=== PATIENT | female | born 1995 | race Caucasian/White ===

== ENCOUNTER 2018-01-18 02:00 | Emergency (ER) | payer OTHER ==
--- NOTE | 2018-01-18 02:27 | ED ---
HPI Chest Pain - HPI Summary HPI Summary: This patient is a 22 year old F presenting to [facility] with a chief complaint of intermittent chest tightness lasting 10 minutes that began on 01/09/2018. The patient rates the pain 2/10 in severity. Symptoms aggravated by nothing. Symptoms alleviated by nothing. Patient reports nausea (resolved), dizziness ( resolved), hot flash (resolved), and palpitations. Patient states she is currently being worked up for Lupus, and she has had positive antibodies for it. - History of Current Complaint Chief Complaint: EDChestWallPain Time Seen by Provider: 01/18/18 02:18 Hx Obtained From: Patient Hx Last Menstrual Period: 01/07/15 Onset/Duration: Started Weeks Ago, Still Present Timing: Intermittent, Lasting Seconds Initial Severity: Mild Current Severity: Mild Pain Intensity: 2 Pain Scale Used: 0-10 Numeric Chest Pain Location: Diffuse Chest Pain Radiates: No Character: Tightness Aggravating Factor(s): Nothing Alleviating Factor(s): Nothing Associated Signs and Symptoms: Positive: Dizziness, Chills, Nausea - Allergy/Home Medications Allergies/Adverse Reactions: Allergies Allergy/AdvReac Type Severity Reaction Status Date / Time No Known Allergies Allergy Verified 01/18/18 02:12 PMH/Surg Hx/FS Hx/Imm Hx Previously Healthy: No Respiratory History: Reports: Hx Asthma - exercise induced Opthamlomology History: Denies: Hx Legally Blind EENT History: Denies: Hx Deafness Infectious Disease History: No Infectious Disease History: Denies: Traveled Outside the [place] in Last 30 Days - Family History Known Family History: Positive: Other - Lupus - Social History Occupation: Student Lives: With Family Alcohol Use: Rare Hx Substance Use: No Substance Use Type: Reports: None Hx Tobacco Use: No Smoking Status (MU): Never Smoked Tobacco Review of Systems Positive: Chills Positive: Palpitations, Chest Pain Negative: Shortness Of Breath Positive: Nausea Neurological: Other - Positive dizziness All Other Systems Reviewed And Are Negative: Yes Physical Exam - Summary Physical Exam Summary: Appearance: Well-appearing, Well-nourished, lying in bed comfortably Skin: Warm, dry, no obvious rash Eyes: sclera anicteric, no conjunctival pallor ENT: mucous membranes moist, pharynx appears normal Neck: Supple, nontender Respiratory: Clear to auscultation, no signs of respiratory distress Cardiovascular: Normal S1, S2. No murmurs. Normal distal pulses in tibial and radial bilaterally. Abdomen: Soft, nontender, normal active bowel sounds present Musculoskeletal: Normal, Strength/ROM Intact Neurological: A&Ox3, awake and alert, mentation is normal, speech is fluent and appropriate Psychiatric: affect is normal, does not appear anxious or depressed Triage Information Reviewed: Yes Vital Signs On Initial Exam: Initial Vitals Temp Pulse Resp BP Pulse Ox 97.9 F 84 18 129/98 100 01/18/18 02:09 01/18/18 02:09 01/18/18 02:09 01/18/18 02:09 01/18/18 02:09 Vital Signs Reviewed: Yes Diagnostics - Vital Signs Vital Signs Temp Pulse Resp BP Pulse Ox 01/18/18 02:09 97.9 F 84 18 129/98 100 - Laboratory Result Diagrams: 01/18/18 02:35 01/18/18 02:35 Lab Statement: Any lab studies that have been ordered have been reviewed, and results considered in the medical decision making process. - Radiology CXR Radiology Interpretation Completed By: ED Physician - CXR reveals, per ED physician, no acute disease. - EKG 0240 Cardiac Rate: NL ST Segment: Normal Ectopy: None EKG Interpretation: Ectopic atrial rhythm at 71 BPM Chest Pain Course/Dx - Course Course Of Treatment: This is a 22-year-old woman with a history of possible SLE , and abnormal electrocardiogram, and some swelling behind her calf. I spoke to the covering photographic developer and printer regarding her abnormal EKG and he was able to review the tracing remotely. It is an ectopic atrial rhythm which apparently is a normal variant and some young people and is considered quite benign. Her ultrasound will be done shortly; I suspect that he'll be negative at which point she can be safely discharged home to outpatient follow-up. - Diagnoses Provider Diagnoses: Leg swelling, Ectopic atrial rhythm - Provider Notifications Discussed Care Of Patient With: Jone Bass Time Discussed With Above Provider: 06:35 Instructed by Provider To: Other - Consult with (cardiology) at 0635. He communicated that ectopic atrial rhythm is a normal variant, and a benign finding. 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 The abnormality on your EKG is an ectopic atrial rhythm, which is a normal variant in some young people and is considered quite benign. Your US was negative for a DVT, so that is not a worry either. - Billing Disposition and Condition Condition: GOOD Disposition: Home - Attestation Statements Document Initiated by Scribe: Yes Documenting Scribe: Yuliet Jurado Provider For Whom Yari is Documenting (Include Credential): Desmond Thurman MD Scribe Attestation: I, Yuliet Jurado, scribed for Desmond Thurman MD on 01/18/18 at 1956. Scribe Documentation Reviewed: Yes Provider Attestation: The documentation as recorded by the Yuliet wallace accurately reflects the service I personally performed and the decisions made by me, Desmond Thurman MD
[2018-01-18 02:50] LABS: ABS Basophils 0.1 10^3/ul (0-0.2); ABS Eosinophils 0.3 10^3/ul (0-0.6); ABS Lymphocytes 3.3 10^3/ul (1.0-4.8); ABS Monocytes 0.9 10^3/ul (0-0.8); ABS Nucleated RBC 0 10^3/ul; Eosinophil % 3.1 % (0-6); Hematocrit 44 % (35-47); Hemoglobin 14.9 g/dl (12.0-16.0); Lymphocyte % 39.4 % (25-47); Mean Corpuscular HGB Conc 34 g/dl (31-36); Mean Corpuscular Hemoglobin 31 pg (27-31); Mean Corpuscular Volume 92 fL (80-97); Nucleated Red Blood Cells % 0.1; Platelet Count 188 10^3/ul (150-450); Red Cell Distribution Width 13 % (10.5-15); White Blood Count 8.4 10^3/ul (3.5-10.8)
[2018-01-18 03:14] LABS: EGFR Non-African American 102.9 (>60)
--- NOTE | 2018-01-18 08:19 | RAD ---
INDICATION: Chest pain COMPARISON: None TECHNIQUE: PA and lateral views of the chest were obtained. FINDINGS: The heart and mediastinum are normal in size and contour. The lungs are grossly clear. There is no evidence of large pleural effusion. Visualized bones are normal for the patient's age. There is no radiographic evidence of free air beneath the diaphragm IMPRESSION: No radiographic evidence of acute cardiopulmonary disease. R0
--- NOTE | 2018-01-18 08:41 | RAD ---
HISTORY: swelling, r/o dvt COMPARISONS: None relevant TECHNIQUE: Multiple transverse and longitudinal ultrasound images were obtained of the right lower extremity from the level of the common femoral vein inferiorly through to the infrapopliteal veins using grayscale, color Doppler, and spectral Doppler imaging with and without compression and with augmentation. Comparison images were obtained of the contralateral common femoral vein. FINDINGS: VEINS: The venous system of the right lower extremity is compressible throughout its course, with normal flow on color Doppler imaging and normal response to augmentation on spectral Doppler imaging. SOFT TISSUES: Unremarkable. OTHER FINDINGS: None. IMPRESSION: NO RIGHT LOWER EXTREMITY DEEP VEIN THROMBOSIS
--- NOTE | 2018-01-18 08:48 | ED ---
Progress - Progress Note Progress Note: Pt was awaiting official reading of US of Right Lower Extremity at shift change at [address] Desmond Thurman MD to Dr. Navdeep Eason MD. US reveals unremarkable findings. Patient will be discharged home as planned by Dr. Thurman , who spoke with the pt before change of shift. - Results/Orders Results/Orders: Venous Doppler US RLE: Negative - No right lower extremity deep vein thrombosis. ED physician has reviewed this report. Course/Dx - Course Course Of Treatment: This is a 22-year-old woman with a history of possible SLE , and abnormal electrocardiogram, and some swelling behind her calf. I spoke to the covering commercial loan collection officer regarding her abnormal EKG and he was able to review the tracing remotely. It is an ectopic atrial rhythm which apparently is a normal variant and some young people and is considered quite benign. Her ultrasound will be done shortly; I suspect that he'll be negative at which point she can be safely discharged home to outpatient follow-up. - Provider Notifications Time Discussed With Above Provider: 06:35 Instructed by Provider To: Other - Consult with (cardiology) at 0635. He communicated that ectopic atrial rhythm is a normal variant, and a benign finding. Discharge - Sign-Out/Discharge Documenting (check all that apply): Patient Departure - Patient will be discharged home. 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 The abnormality on your EKG is an ectopic atrial rhythm, which is a normal variant in some young people and is considered quite benign. Your US was negative for a DVT, so that is not a worry either. - Billing Disposition and Condition Condition: GOOD Disposition: Home - Attestation Statements Document Initiated by Yari: Yes Documenting Scribe: Amanda Coleman Provider For Whom Yari is Documenting (Include Credential): Navdeep Eason MD Scribe Attestation: Amanda Perkins, scribed for Navdeep Eason MD on 01/18/18 at 1013. Scribe Documentation Reviewed: Yes Provider Attestation: The documentation as recorded by the Amanda wallace accurately reflects the service I personally performed and the decisions made by me, Navdeep Eason MD
[2018-01-18 09:15] VITALS: BP 101/68
== END 2018-01-18 09:13 | disposition home or self-care (01) ==
LOC: ED 02:00
DX: M79.89 Other specified soft tissue disorders (principal); I49.1 Atrial premature depolarization; R42 Dizziness and giddiness; R68.83 Chills (without fever); R11.0 Nausea; R00.2 Palpitations; R07.9 Chest pain, unspecified
CPT/HCPCS: 36415; 71046; 80053; 84484; 85025; 85379; 93005; 99282

== ENCOUNTER 2018-02-19 16:18 | Emergency (ER) | payer OTHER ==
[2018-02-19 16:43] VITALS: BP 113/72
--- NOTE | 2018-02-19 17:50 | UC ---
Respiratory Complaint HPI - HPI Summary HPI Summary: C/O cough with wheezing x 5-6 days. Frontal sinus pain with coughing. - History of Current Complaint Chief Complaint: UCGeneralIllness Stated Complaint: COUGH Time Seen by Provider: 02/19/18 17:42 Hx Obtained From: Patient Hx Last Menstrual Period: BCP-no menstrual cycle ?: No Onset/Duration: Sudden Onset, Lasting Days - 6, Still Present, Worse Since - onset Timing: Constant Severity Initially: Mild Severity Currently: Moderate Pain Intensity: 0 Character: Cough: Nonproductive Aggravating Factors: Deep Breaths, Recumbent Position Alleviating Factors: Nothing Associated Signs And Symptoms: Positive: Wheezing, Hoarseness, Sinus Discomfort - just with coughing - Allergies/Home Medications Allergies/Adverse Reactions: Allergies Allergy/AdvReac Type Severity Reaction Status Date / Time No Known Allergies Allergy Verified 02/19/18 16:43 Home Medications: Home Medications Atenolol TAB* [Tenormin TAB* 25 MG] 25 mg PO DAILY 02/19/18 [History Confirmed 02/19/18] PMH/Surg Hx/FS Hx/Imm Hx Other Cardiovascular History: SVT Respiratory History: Asthma - Surgical History Surgical History: None - Family History Known Family History: Positive: Hypertension, Diabetes, Other - Lupus - Social History Occupation: Employed Full-time Lives: Alone Alcohol Use: Rare Substance Use Type: None Smoking Status (MU): Never Smoked Tobacco Have You Smoked in the Last Year: No Review of Systems Constitutional: Chills - in the first couple of days. ENT: Nasal Discharge, Sinus Congestion Respiratory: Shortness Of Breath, Cough Is Patient Immunocompromised?: No All Other Systems Reviewed And Are Negative: Yes Physical Exam Triage Information Reviewed: Yes Appearance: No Pain Distress, Well-Nourished, Ill-Appearing Vital Signs: Initial Vital Signs Temp 98.5 F 02/19/18 16:39 Pulse 122 02/19/18 16:39 Resp 18 02/19/18 16:39 BP 113/72 02/19/18 16:39 Pulse Ox 100 02/19/18 16:39 Vital Signs Reviewed: Yes Eyes: Positive: Conjunctiva Clear ENT: Positive: Pharynx normal, Nasal congestion, TMs normal Neck exam: Normal Respiratory: Positive: Wheezing - diffuse expiratory wheeze with coughing Cardiovascular Exam: Normal Abdomen Description: Positive: Nontender, No Organomegaly Bowel Sounds: Positive: Present Musculoskeletal Exam: Normal Neurological Exam: Normal Psychological Exam: Normal Skin Exam: Normal UC Diagnostic Evaluation - Laboratory O2 Sat by Pulse Oximetry: 100 Respiratory Course/Dx - Differential Dx/Diagnosis Differential Diagnosis/HQI/PQRI: Asthma, Exacerbation Of COPD, Lower Resp Infection, Sinusitis Provider Diagnoses: Acute URI. Acute bronchospasm Discharge - Sign-Out/Discharge Documenting (check all that apply): Patient Departure All imaging exams completed and their final reports reviewed: No Studies - Discharge Plan Condition: Stable Disposition: HOME Prescriptions: predniSONE TAB* [Deltasone 20 MG TAB*] 20 mg PO DAILY #18 tab Patient Education Materials: Upper Respiratory Infection (ED), Wheezing (ED), Prednisone (By mouth), How to Use a Metered-Dose Inhaler and a Spacer (ED), Albuterol (By breathing) Referrals: Rosalba Travis PA [Primary Care Provider] - - Billing Disposition and Condition Condition: STABLE Disposition: Home
[2018-02-19] MEDS ORDERED: Albuterol HFA INHALER* 8 gm MDI INH ONE (17:52)
[2018-02-19] MEDS ORDERED: predniSONE TAB* 20 MG PO ONE (17:52)
== END 2018-02-19 18:19 | disposition home or self-care (01) ==
LOC: UCCORT 16:18
DX: J06.9 Acute upper respiratory infection, unspecified (principal); J98.01 Acute bronchospasm
CPT/HCPCS: 99213; A9270-GY; G0463; J7512